=== PATIENT | female | born 1950 | race Caucasian/White ===

== ENCOUNTER 2024-01-29 04:09 | Emergency (ER) | payer OTHER ==
[~2024-01-29] VITALS: Ht 167.6 cm; Wt 81.7 kg
[2024-01-29 04:24] VITALS: BP 147/81; PULSE 94; RESP 20; TEMP 97.7
[2024-01-29 05:25] VITALS: O2SAT 95
== END 2024-01-29 05:35 | disposition home or self-care (01) ==
LOC: ER 04:09
DX: R04.2 Hemoptysis (principal); E78.5 Hyperlipidemia, unspecified; I10 Essential (primary) hypertension